=== PATIENT | female | born 1975 | race Hispanic/Latino ===

== ENCOUNTER 2018-11-20 16:00 | Outpatient (CLI) | payer OTHER | END 2018-11-20 16:01 | disposition home or self-care (01) | LOC: BICMAMMO 16:00 | PROVIDERS: ATTEND Family Medicine | DX: Z12.31 Encounter for screening mammogram for malignant neoplasm of breast (principal); R92.1 Mammographic calcification found on diagnostic imaging of breast | CPT/HCPCS: 77063; 77067 ==

== ENCOUNTER 2021-10-30 08:36 | Emergency (ER) | payer BC ==
[2021-10-30] MEDS ORDERED: Cyclobenzaprine 10 MG TAB ONE (09:58)
[2021-10-30] MEDS ORDERED: Ketorolac Tromethamine 30 MG/ML VIAL ONE (09:58)
[2021-10-30 10:19] LABS: Bilirubin Negative (Negative); Blood, Urine Moderate (Negative); Glucose, Urine (Dipstick) Negative (Negative); Ketone, Urine Negative (Negative); Leukocyte Trace (Negative); Nitrite Negative (Negative); Protein, Urine (Dipstick) Negative (Neg-Trace); Specific Gravity, Urine 1.025 (1.005-1.030); Urobilinogen 0.2 mg/dL (Less than 2)
[2021-10-30 10:21] LABS: Clarity Clear (Clear)
[2021-10-30 10:28] LABS: WBC/HPF 21-50 HPF (0-3)
[2021-10-30 10:32] LABS: Bacteria/HPF 1+ HPF (None Seen)
== END 2021-10-30 11:16 | disposition home or self-care (01) ==
LOC: ERS 08:36
DX: N10 Acute pyelonephritis (principal)
CPT/HCPCS: 81003; 81015; 87077; 87086; 87186; 96372; 99283; J1885

== ENCOUNTER 2021-11-10 10:34 | Outpatient (CLI) | payer BC | END 2021-11-10 10:35 | disposition home or self-care (01) | LOC: DTY/OP 10:34 | PROVIDERS: ATTEND Family Medicine | DX: E11.9 Type 2 diabetes mellitus without complications (principal); E78.5 Hyperlipidemia, unspecified | CPT/HCPCS: 97802 ==

== ENCOUNTER 2024-03-28 07:55 | Outpatient (CLI) | payer BC | END 2024-03-28 07:56 | disposition home or self-care (01) | LOC: BICMAMMO 07:55 | PROVIDERS: ATTEND Family Medicine | DX: Z12.31 Encounter for screening mammogram for malignant neoplasm of breast (principal) | CPT/HCPCS: 77063; 77067 ==

== ENCOUNTER 2025-04-09 14:22 | Outpatient (CLI) | payer BC | END 2025-04-09 14:23 | disposition home or self-care (01) | LOC: BICMAMMO 14:22 | PROVIDERS: ATTEND Family Medicine | DX: Z12.31 Encounter for screening mammogram for malignant neoplasm of breast (principal); N63.21 Unspecified lump in the left breast, upper outer quadrant | CPT/HCPCS: 77063; 77067 ==